=== PATIENT | female | born 1985 | race Caucasian/White ===

== ENCOUNTER 2020-05-21 16:41 | Emergency (ER) | payer MEDICAID ==
[~2020-05-21] VITALS: Ht 167.6 cm; Wt 99.8 kg
[2020-05-21 16:47] VITALS: BP 155/109
[2020-05-21] MEDS ORDERED: ACETAMINOPHEN 325 MG TAB PO ONE (17:05)
[2020-05-21 17:30] LABS: BASOPHILS # (AUTO) 0.1 K/uL (0.00-0.22); BASOPHILS % (AUTO) 0.5 % (0.0-2.0); EOSINOPHILS # (AUTO) 0.6 K/uL (0-0.4); HEMATOCRIT 39.4 % (36-48); HEMOGLOBIN 13.2 g/dL (12.0-16.0); LYMPHOCYTES # (AUTO) 1.9 K/uL (2.5-16.5); LYMPHOCYTES % (AUTO) 17.3 % (20.5-51.1); MEAN CORPUSCULAR HEMOGLOBIN 30 pg (27-31); MEAN CORPUSCULAR HGB CONC 34 g/dL (33-37); MEAN CORPUSCULAR VOLUME 88.7 fL (80-94); MONOCYTES # (AUTO) 0.7 K/uL (0.8-1.0); MONOCYTES % (AUTO) 6.5 % (1.7-9.3); NEUTROPHILS # (AUTO) 7.8 K/uL (1.8-7.7); NEUTROPHILS % (AUTO) 70.7 % (42.2-75.2); PLATELET COUNT (AUTO) 295 K/uL (140-450); RED BLOOD CELL COUNT(AUTO) 4.44 MIL/uL (4.20-5.40); WHITE BLOOD COUNT (AUTO) 11.1 K/uL (4.8-10.8)
[2020-05-21 17:34] LABS: BILIRUBIN,URINE 1+ (NEGATIVE); BLOOD, URINE 3+ (NEGATIVE); COLOR,URINE RED (YELLOW); LEUKOCYTE ESTERASE ,URINE NEGATIVE (NEGATIVE); NITRITE, URINE NEGATIVE (NEGATIVE); UGLUCOSE NEGATIVE (NEGATIVE)
[2020-05-21 17:49] LABS: ALBUMIN 4.2 g/dL (3.4-5.0); ANION GAP 12.7 (8-16); CARBON DIOXIDE 26.1 mmol/L (21-32); CREATININE 0.7 mg/dL (0.6-1.3); POTASSIUM 3.8 mmol/L (3.5-5.1); TOTAL BILIRUBIN 0.4 mg/dL (0.0-1.0)
[2020-05-21] MEDS ORDERED: ACET-1182 PO (18:37)
[2020-05-21 18:50] LABS: APPEARANCE,URINE SLIGHTLY CLOUDY (CLEAR)
[2020-05-21 18:53] LABS: RBC,URINE >100 /HPF (0-5)
[2020-05-21 19:04] VITALS: BP 155/109
== END 2020-05-21 19:05 | disposition home or self-care (01) ==
LOC: MED 16:41
DX: O23.41 Unspecified infection of urinary tract in pregnancy, first trimester (principal); O26.891 Other specified pregnancy related conditions, first trimester; O20.8 Other hemorrhage in early pregnancy; D72.829 Elevated white blood cell count, unspecified; Z3A.10 10 weeks gestation of pregnancy
CPT/HCPCS: 36415; 76817; 80053; 81001; 84702; 85025; 86900; 86901; 87086; 99284